=== PATIENT | male | born 1950 | race Caucasian/White ===

== ENCOUNTER 2020-05-01 05:30 | Day surgery (SDC) | payer MEDICARE, BC ==
[~2020-05-01 05:30] MED LIST: Dextrose 5%-0.45% NaCl 1,000 ML IV SCH; Sodium Chloride 0.9% 10 ML Syringe FLUSH PRN
[2020-05-01] MEDS ORDERED: fentaNYL 100 MCG/2 ML SDV IV ONE ×3 (05:31→06:31)
[2020-05-01] MEDS ORDERED: Midazolam 1 MG/ML 2 ML SDV IV ONE ×3 (05:31→06:32)
[2020-05-01] MEDS ORDERED: fentaNYL 100 MCG/2 ML SDV ONE (06:07)
[2020-05-01] MEDS ORDERED: Midazolam 1 MG/ML 2 ML SDV ONE (06:07)
--- NOTE | 2020-05-01 09:12 | OR ---
DATE: 05/01/2020 PROCEDURES: Esophagogastroduodenoscopy and multiple pinch biopsies. INSTRUMENT USED: [id number] Olympus video panendoscope. PREMEDICATIONS: No oral or topical anesthesia used. Fentanyl 100 mcg intravenous, Versed 2 mg intravenous. 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 INDICATION: The patient with long-standing heartburn, more so recently, unexplained and not responsive to medical measures, on high-dose PPI. Esophagogastroduodenoscopy is performed for detection of any active erosive lesions, Meza esophagus and/or malignancy also under consideration, H pylori status to be determined, endoscopic hemostasis therapy if needed. DESCRIPTION OF PROCEDURE: The scope was passed with ease. Adequate visualization of the esophagus was made from proximal to distal areas. No upper esophageal lesions were identified. No distal esophageal stricture. No uphill or downhill esophageal varices. No Jazmin-Lyon tear. No evidence of erosive esophagitis by [place] criteria. No esophageal polyp or tumor mass identified. Z-line was seen at around 40 cm distal to the oral verge, configuration consistent with grade 1 by ZAP calcification. No proximal gastric varices noted. Gastric fundus examination by retroflexion showed no polypoid lesions. No gastric ulcer, malignant mass, or vascular ectasia identified. Duodenal bulb showed no ulcer. Visualized second part of the duodenum was unremarkable. Multiple pinch biopsies were taken from the gastric antrum and proximal body and sent for PyloriTek test for H pylori, and if negative in an hour, the tissue is to be sent for histopathology. No bleeding was noted from any of the visualized areas at the completion of examination. Photographs were taken of the duodenal bulb, gastric antrum, fundus, and distal esophagus. IMPRESSION: Normal study. The patient tolerated the procedure well. [facility] /[id number]
[2020-05-01 09:21] VITALS: BP 120/62; PULSE 60
== END 2020-05-01 08:55 | disposition home or self-care (01) ==
LOC: DL.ENDO 05:30
PROVIDERS: ATTEND Internal Medicine Gastroenterology
DX: R12 Heartburn (principal); K21.9 Gastro-esophageal reflux disease without esophagitis; I25.10 Atherosclerotic heart disease of native coronary artery without angina pectoris; E66.09 Other obesity due to excess calories; D69.6 Thrombocytopenia, unspecified; J30.9 Allergic rhinitis, unspecified; C61 Malignant neoplasm of prostate; Z98.890 Other specified postprocedural states; Z68.27 Body mass index [BMI] 27.0-27.9, adult
CPT/HCPCS: 43239; 87077; J2250; J3010; J7042

== ENCOUNTER 2020-07-08 20:32 | Emergency (ER) | payer MEDICARE, BC ==
[2020-07-08 20:42] VITALS: BP 131/61; PULSE 84
--- NOTE | 2020-07-08 21:03 | EDM.PDOC ---
ED HPI GENERAL MEDICAL PROBLEM - General Chief Complaint: Genitourinary Problem Stated Complaint: HAD SURGERY ON THURSDAY PROSTATE, IN PAIN Time Seen by Provider: 07/08/20 20:58 Source of Information: Reports: Patient History Limitations: Reports: No Limitations - History of Present Illness INITIAL COMMENTS - FREE TEXT/NARRATIVE: s/p prostatectomy Wed @ [facility] and d/c follow day. been ok and eating normally. last BM 5 days ago and did take oxy and also sennokot. problem is the progressive swelling at surgical site on right abd. denies N/V. does have some pain but not much. - Related Data Allergies Allergy/AdvReac Type Severity Reaction Status Date / Time aspirin Allergy Severe Respiratory Verified 05/01/20 05:53 Distress Penicillins Allergy Severe Anaphylactic Verified 05/01/20 05:53 Shock ibuprofen [From Motrin] Allergy Intermediate Other Verified 05/01/20 05:53 Home Meds: Home Meds Acetaminophen [Tylenol Extra Strength] 500 mg PO Q4HR PRN 12/12/15 [History] Multivitamin [Multivitamins] 1 tab PO DAILY 12/12/15 [History] Omeprazole 20 mg PO BID 04/30/20 [History] Tamsulosin HCl [Flomax] 0.4 mg PO DAILY 04/30/20 [History] Past Medical History HEENT History: Reports: Impaired Vision Other HEENT History: wears glasses Cardiovascular History: Reports: None Respiratory History: Reports: None Gastrointestinal History: Reports: Colon Polyp, GERD Genitourinary History: Reports: Other (See Below) Musculoskeletal History: Reports: None Neurological History: Reports: None Psychiatric History: Reports: None Endocrine/Metabolic History: Reports: None Hematologic History: Reports: Idiopathic Thrombocytopenia Other Hematologic History: Low platelets. Pt. 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 [place] GI Surgical History: Reports: Cholecystectomy, Colonoscopy, EGD, Polypectomy Male Surgical History: Reports: Prostate Biopsy, Prostatectomy Musculoskeletal Surgical History: Reports: None Oncologic Surgical History: Reports: None Dermatological Surgical History: Reports: None Social & Family History - Family History Family Medical History: Noncontributory - Tobacco Use Smoking Status *Q: Never Smoker - Caffeine Use Caffeine Use: Reports: Coffee, Soda - Recreational Drug Use Recreational Drug Use: No ED ROS GENERAL - Review of Systems Review Of Systems: Comprehensive ROS is negative, except as noted in HPI. ED EXAM, GI/ABD - Physical Exam Exam: See Below Exam Limited By: No Limitations General Appearance: Alert, WD/WN, Mild Distress, Other (discomfort). No: Active Emesis Ears: Hearing Grossly Normal Throat/Mouth: Normal Voice, No Airway Compromise Head: Atraumatic Neck: Non-Tender, Full Range of Motion Respiratory/Chest: No Respiratory Distress Cardiovascular: Regular Rate, Rhythm GI/Abdominal Exam: Tender, Other (right lateral abd ecchymotic swollen tender to palpation, surgical sites intact.). No: Distended, Guarding, Rigid, Rebound (Male) Exam: Deferred Rectal (Males) Exam: Deferred Neurological: Alert, Oriented, Normal Cognition, Normal Gait, No Motor/Sensory Deficits Psychiatric: Normal Affect, Normal Mood Skin Exam: Warm, Dry, Normal Color Lymphatic: No Adenopathy Course - Vital Signs Last Recorded V/S: Last Vital Signs Temp 37.4 C 07/08/20 20:41 Pulse 84 07/08/20 20:41 Resp 20 07/08/20 20:41 BP 131/61 07/08/20 20:41 Pulse Ox 100 07/08/20 20:41 - Orders/Labs/Meds Orders: Active Orders 24 hr Category Date Time Status CULTURE BLOOD [BC] Stat Lab 07/08/20 20:57 Received UA RFX AMY AND CULT IF INDIC [URIN] Stat Lab 07/08/20 20:46 Ordered Labs: Laboratory Tests 07/08/20 07/08/20 07/08/20 Range/Units 20:57 20:57 20:57 WBC 5.2 (5.0-10.0) 10^3/uL RBC 3.10 L (4.6-6.2) 10^6/uL Hgb 10.0 L (14.0-18.0) g/dL Hct 28.3 L (40.0-54.0) % MCV 91.3 (80-100) fL MCH 32.3 (27.0-34.0) pg MCHC 35.3 H (33.0-35.0) g/dL Plt Count 89 L (150-450) 10^3/uL Neut % (Auto) 57.7 (42.2-75.2) % Lymph % (Auto) 25.0 (20.5-50.1) % Griggs % (Auto) 11.5 H (2-8) % Eos % (Auto) 5.4 H (1.0-3.0) % Baso % (Auto) 0.4 (0.0-1.0) % PT (9.0-12.0) SEC INR (0.9-1.2) APTT (22.0-34.0) SEC Sodium 142 (136-145) mmol/L Potassium 3.6 (3.5-5.1) mmol/L Chloride 103 (98-107) mmol/L Carbon Dioxide 29 (21-32) mmol/L Anion Gap 13.6 H (7-13) mEq/L BUN 14 (7-18) mg/dL Creatinine 1.17 (0.70-1.30) mg/dL Est Cr Clr Drug Dosing 65.40 mL/min Estimated GFR (MDRD) > 60 BUN/Creatinine Ratio 12.0 (No establ ref range) Glucose 112 H (74-99) mg/dL Lactic Acid 1.0 (0.4-2.0) mmol/L Calcium 8.0 L (8.5-10.1) mg/dL Total Bilirubin 0.6 (0.2-1.0) mg/dL AST 34 (15-37) U/L ALT 34 (16-63) U/L Alkaline Phosphatase 40 L (46-116) U/L Total Protein 5.8 L (6.4-8.2) g/dL Albumin 3.2 L (3.4-5.0) g/dL Globulin 2.6 Albumin/Globulin Ratio 1.23 07/08/20 Range/Units 20:57 WBC (5.0-10.0) 10^3/uL RBC (4.6-6.2) 10^6/uL Hgb (14.0-18.0) g/dL Hct (40.0-54.0) % MCV (80-100) fL MCH (27.0-34.0) pg MCHC (33.0-35.0) g/dL Plt Count (150-450) 10^3/uL Neut % (Auto) (42.2-75.2) % Lymph % (Auto) (20.5-50.1) % Griggs % (Auto) (2-8) % Eos % (Auto) (1.0-3.0) % Baso % (Auto) (0.0-1.0) % PT 10.1 (9.0-12.0) SEC INR 1.1 (0.9-1.2) APTT 25.4 (22.0-34.0) SEC Sodium (136-145) mmol/L Potassium (3.5-5.1) mmol/L Chloride (98-107) mmol/L Carbon Dioxide (21-32) mmol/L Anion Gap (7-13) mEq/L BUN (7-18) mg/dL Creatinine (0.70-1.30) mg/dL Est Cr Clr Drug Dosing mL/min Estimated GFR (MDRD) BUN/Creatinine Ratio (No establ ref range) Glucose (74-99) mg/dL Lactic Acid (0.4-2.0) mmol/L Calcium (8.5-10.1) mg/dL Total Bilirubin (0.2-1.0) mg/dL AST (15-37) U/L ALT (16-63) U/L Alkaline Phosphatase (46-116) U/L Total Protein (6.4-8.2) g/dL Albumin (3.4-5.0) g/dL Globulin Albumin/Globulin Ratio Meds: Medications Discontinued Medications Generic Name Dose Route Start Last Admin Trade Name Freq PRN Reason Stop Dose Admin Iopamidol 100 ml 07/08/20 21:48 07/08/20 21:59 Isovue-300 (61%) IVPUSH 07/08/20 21:49 100 ml ONETIME ONE Administration - Re-Assessments/Exams Free Text/Narrative Re-Assessment/Exam: 07/08/20 23:03 results discussed with pt who took pics to send to surgeon. 07/08/20 23:21 re-exam; pt states picture of result sent to his son who FP-MD and replied with labs and CAT reports are wnl. pt and spouse wish to go home. Departure - Departure Time of Disposition: 23:22 Disposition: Home, Self-Care 01 Condition: Good Clinical Impression: Postop check - Discharge Information Forms: ED Department Discharge Additional Instructions: 1) return if there is any change or concern 2) notify surgeon tomorrow of visit Sepsis Event Note (ED) - Evaluation Sepsis Screening Result: No Definite Risk - Focused Exam Vital Signs: Vital Signs Temp Pulse Resp BP Pulse Ox 07/08/20 20:41 37.4 C 84 20 131/61 100 - My Orders Last 24 Hours: My Active Orders 07/08/20 20:46 UA RFX AMY AND CULT IF INDIC [URIN] Stat 07/08/20 20:57 CULTURE BLOOD [BC] Stat - Assessment/Plan Last 24 Hours: My Active Orders 07/08/20 20:46 UA RFX AMY AND CULT IF INDIC [URIN] Stat 07/08/20 20:57 CULTURE BLOOD [BC] Stat
[2020-07-08 21:27] LABS: ANION GAP 13.6 mEq/L (7-13); CHLORIDE,CL 103 mmol/L (98-107); SODIUM,NA 142 mmol/L (136-145)
[2020-07-08 21:40] LABS: PTT,PARTIAL THROMBOPLSTIN TIME 25.4 SEC (22.0-34.0)
[2020-07-08] MEDS ORDERED: Iopamidol 612 MG/ML 100 ML Bottle IVPUSH ONE (21:48)
--- NOTE | 2020-07-08 22:50 | CT ---
PROCEDURE INFORMATION: Exam: CT Abdomen And Pelvis With Contrast Exam date and time: 07/08/2020 10:00 PM Age: 69 years old Clinical indication: Other: Prostate surgery 3 days ago; Prior surgery; Surgery date: 3-7 days post-operative; Additional info: Post op swelling at surgical site TECHNIQUE: Imaging protocol: Computed tomography of the abdomen and pelvis with intravenous contrast. Radiation optimization: All CT scans at this facility use at least one of these dose optimization techniques: automated exposure control; mA and/or kV adjustment per patient size (includes targeted exams where dose is matched to clinical indication); or iterative reconstruction. Contrast material: [id number]; Contrast volume: 100 ml; Contrast route: INTRAVENOUS (IV); COMPARISON: No relevant prior studies available. FINDINGS: Lungs: Bibasilar pulmonary parenchymal scarring. Pleural space: Moderate bibasilar pleural thickening . Liver: The liver is normal in architecture, without suspicious abnormality. Gallbladder and bile ducts: The gallbladder is surgically absent. Pancreas: The pancreatic parenchyma is normal in bulk and sharply marginated. Duct is not dilated. No calcifications, masses, or abnormal fluid collections. Spleen: Spleen is normal in size. No mass or fluid collection. Adrenals: There are no adrenal masses. Kidneys and ureters: Normal in parenchymal bulk. No hydronephrosis or asymmetric perinephric stranding. No solid masses. No stones. 1.7 cm cortical cyst upper pole right kidney requiring no further workup according to guidelines. Stomach and bowel: No significant abnormalities of the stomach. There are no dilated or thickened small bowel loops. Gas and stool are seen in the colon to the rectum. No mass. Appendix: There is no evidence for appendicitis. Intraperitoneal space: No ascites. No abscess. No inflammation within the intra-abdominal fat. No pneumoperitoneum. No mass. Vasculature: There is atherosclerotic calcification of the aorto-iliac tree. There is no abdominal aortic aneurysm. Lymph nodes: Indeterminate enlarged left pelvic sidewall lymph node 1.6 x 1.8 cm. Right external iliac fluid collection 3 x 4 cm could be seroma. Urinary bladder: A Henning catheter decompresses the urinary bladder. Reproductive: Lobular soft tissue density measuring 5.5 x 6.3 cm in the bed of the prostate gland is probably an enlarged prostate gland. Bones/joints: There has been a previous median sternotomy. Soft tissues: Multiple bubbles of subcutaneous emphysema along each spermatic cord, in bilateral inguinal regions, and in the subcutaneous fat of both lower quadrants of the abdomen. Shaggy, linear increased attenuation within subcutaneous fat of periumbilical and right lower quadrant abdominal wall consistent with interstitial hemorrhage. IMPRESSION: 1. Postoperative subcutaneous emphysema and subcutaneous hemorrhage which may account for the postoperative swelling at the surgical site. 2. Lobular soft tissue density measuring 5.5 x 6.3 cm in the bed of the prostate gland is probably an enlarged prostate gland. 3. Indeterminate enlarged left pelvic sidewall lymph node 1.6 x 1.8 cm. 4. Right external iliac fluid collection 3 x 4 cm probably a seroma.
== END 2020-07-08 23:38 | disposition home or self-care (01) ==
LOC: DL.ED 20:32
DX: N99.89 Other postprocedural complications and disorders of genitourinary system (principal); Z88.5 Allergy status to narcotic agent; Z88.0 Allergy status to penicillin; Z88.6 Allergy status to analgesic agent; K21.9 Gastro-esophageal reflux disease without esophagitis; Z79.899 Other long term (current) drug therapy
CPT/HCPCS: 36415; 74177; 80053; 83605; 85025; 85610; 85730; 87040; 99284; Q9967; 99282

== ENCOUNTER 2020-07-10 01:28 | Emergency (ER) | payer MEDICARE, BC ==
[2020-07-10 01:36] VITALS: BP 133/69; PULSE 83
--- NOTE | 2020-07-10 02:11 | EDM.PDOC ---
ED HPI GENERAL MEDICAL PROBLEM - General Chief Complaint: Genitourinary Problem Stated Complaint: PLUGGED CATHETER Time Seen by Provider: 07/10/20 01:55 Source of Information: Reports: Patient History Limitations: Reports: No Limitations - History of Present Illness INITIAL COMMENTS - FREE TEXT/NARRATIVE: This 69 yo male patient reports to the ED with decreased urine output from his catheter. The patient recently had prostate surgery in [place]. Last night, the patient placed his overnight bag, but noticed that he did not have any urinary output in 2 hours. The patient reports no lower abdominal pain at this time. Nursing staff attempted to flush the catheter (resulting in equal amounts in and out). A bladder scan was done demonstrating 40 mL of fluid in the bladder (at be st). Onset: Today Duration: Constant Location: Reports: Other Quality: Reports: Other Severity: Mild Improves with: Reports: None Worsens with: Reports: None Context: Reports: Other Associated Symptoms: Reports: No Other Symptoms - Related Data Allergies Allergy/AdvReac Type Severity Reaction Status Date / Time aspirin Allergy Severe Respiratory Verified 07/10/20 01:37 Distress Penicillins Allergy Severe Anaphylactic Verified 07/10/20 01:37 Shock ibuprofen [From Motrin] Allergy Intermediate Other Verified 07/10/20 01:37 Home Meds: Home Meds Acetaminophen [Tylenol Extra Strength] 500 mg PO Q4HR PRN 12/12/15 [History] Multivitamin [Multivitamins] 1 tab PO DAILY 12/12/15 [History] Omeprazole 20 mg PO BID 04/30/20 [History] Tamsulosin HCl [Flomax] 0.4 mg PO DAILY 04/30/20 [History] Sennosides/Docusate Sodium [Senna Plus 8.6-50 mg Tablet] 1 tab PO BID PRN 07/08/20 [History] Tadalafil [Cialis] 10 mg PO ASDIRECTED PRN 07/08/20 [History] oxyCODONE 5 mg PO ASDIRECTED PRN 07/08/20 [History] Past Medical History HEENT History: Reports: Impaired Vision Other HEENT History: wears glasses Cardiovascular History: Reports: None Respiratory History: Reports: None Gastrointestinal History: Reports: Colon Polyp, GERD Genitourinary History: Reports: Prostate Disorder, Other (See Below) Musculoskeletal History: Reports: None Neurological History: Reports: None Psychiatric History: Reports: None Endocrine/Metabolic History: Reports: None Hematologic History: Reports: Idiopathic Thrombocytopenia Other Hematologic History: Low platelets. Pt. 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 [place] GI Surgical History: Reports: Cholecystectomy, Colonoscopy, EGD, Polypectomy Male Surgical History: Reports: Prostate Biopsy, Prostatectomy Musculoskeletal Surgical History: Reports: None Oncologic Surgical History: Reports: None Dermatological Surgical History: Reports: None Social & Family History - Family History Family Medical History: Noncontributory - Tobacco Use Smoking Status *Q: Never Smoker Second Hand Smoke Exposure: No - Caffeine Use Caffeine Use: Reports: None - Recreational Drug Use Recreational Drug Use: No ED ROS GENERAL - Review of Systems Review Of Systems: Comprehensive ROS is negative, except as noted in HPI. ED EXAM, RENAL/ - Physical Exam Exam: See Below Exam Limited By: No Limitations General Appearance: Alert, WD/WN, No Apparent Distress Eye Exam: Bilateral Eye: EOMI, Normal Inspection, Periorbital Changes Ears: Normal External Exam, Normal Canal, Hearing Grossly Normal, Normal TMs Nose: Normal Inspection, Normal Mucosa, No Blood Throat/Mouth: Normal Lips, Normal Teeth, Normal Gums, Normal Voice, No Airway Compromise, Other (dry mucosa) Head: Atraumatic, Normocephalic Neck: Normal Inspection, Supple, Non-Tender, Full Range of Motion Respiratory/Chest: No Respiratory Distress, Lungs Clear, Normal Breath Sounds, No Accessory Muscle Use, Chest Non-Tender Cardiovascular: Normal Peripheral Pulses, Regular Rate, Rhythm, No Edema, No Gallop, No JVD, No Murmur, No Rub GI/Abdominal: Normal Bowel Sounds, Soft, Non-Tender, No Organomegaly, No Distention, No Abnormal Bruit, No Mass, Other (diffuse post op bruising throughout lower abdomen) (Male) Exam: Deferred Rectal (Males) Exam: Deferred Back Exam: Normal Inspection, Full Range of Motion, NT Extremities: Normal Inspection, Normal Range of Motion, Non-Tender, Normal Capillary Refill, No Pedal Edema Neurological: Alert, Oriented, CN II-XII Intact, Normal Cognition, Normal Gait, Normal Reflexes, No Motor/Sensory Deficits Psychiatric: Normal Affect, Normal Mood Skin Exam: Warm, Dry, Intact, Normal Color, No Rash Lymphatic: No Adenopathy Course - Vital Signs Last Recorded V/S: Last Vital Signs Temp 36.6 C 07/10/20 01:33 Pulse 83 07/10/20 01:33 Resp 18 07/10/20 01:33 BP 133/69 07/10/20 01:33 Pulse Ox 98 07/10/20 01:33 Departure - Departure Time of Disposition: 02:09 Disposition: Home, Self-Care 01 Condition: Fair Clinical Impression: Mild dehydration - Discharge Information *PRESCRIPTION DRUG MONITORING PROGRAM REVIEWED*: Not Applicable *COPY OF PRESCRIPTION DRUG MONITORING REPORT IN PATIENT VINI: Not Applicable Instructions: Dehydration, Adult, Htny-by-Usfv Care Plan Goals: The patient was advised of the examination and bladder scan results during the v isit. The patient was encouraged to increase his oral fluid intake. If the patient has any additional symptoms or concerns, the patient should either return to the emergency department or visit his primary care facility. Sepsis Event Note (ED) - Evaluation Sepsis Screening Result: No Definite Risk - Focused Exam Vital Signs: Vital Signs Temp Pulse Resp BP Pulse Ox 07/10/20 01:33 36.6 C 83 18 133/69 98
== END 2020-07-10 02:15 | disposition home or self-care (01) ==
LOC: DL.ED 01:28
DX: E86.0 Dehydration (principal); K91.871 Postprocedural hematoma of a digestive system organ or structure following other procedure; K21.9 Gastro-esophageal reflux disease without esophagitis; Z88.6 Allergy status to analgesic agent; Z88.0 Allergy status to penicillin; Z90.49 Acquired absence of other specified parts of digestive tract; Z79.899 Other long term (current) drug therapy
CPT/HCPCS: 99282; 99283